=== PATIENT | male | born 1985 | race Caucasian/White ===

== ENCOUNTER 2017-09-09 19:33 | Emergency (ER) | payer MEDICAID ==
[~2017-09-09] VITALS: Ht 154.9 cm; Wt 72.6 kg
[~2017-09-09 19:33] MED LIST: EPHE1TAB PO
[2017-09-09 19:42] VITALS: BP 127/78
== END 2017-09-09 20:58 | disposition home or self-care (01) ==
LOC: ER 19:36
DX: J45.909 Unspecified asthma, uncomplicated (principal)
CPT/HCPCS: 99283; A4606; Z7610

== ENCOUNTER 2017-09-12 23:31 | Emergency (ER) | payer MEDICAID ==
[~2017-09-12] VITALS: Ht 167.6 cm; Wt 74.8 kg
[2017-09-13 00:16] VITALS: BP 115/89
[2017-09-13] MEDS ORDERED: ALBUTEROL FS 2.5 MG/0.5 ML VIAL.NEB NEB ONE (01:00)
[2017-09-13] MEDS ORDERED: ALBUTEROL FS 2.5 MG/0.5 ML VIAL.NEB ONE (01:04)
== END 2017-09-13 01:28 | disposition home or self-care (01) ==
LOC: ER 23:34
DX: J45.909 Unspecified asthma, uncomplicated (principal)
CPT/HCPCS: 94640 ×2; 99283; A4606; Z7610